=== PATIENT | female | born 1990 ===

== ENCOUNTER 2024-11-26 07:47 | Inpatient (IN) ==
[2024-11-26] MEDS ORDERED: LIDOCAINE 1% LOCAL 20 ML VIAL INFIL PRN (08:50)
--- NOTE | 2024-11-26 09:05 | History & Physical Report ---
Date of Service November 26, 2024 Assessment & Plan (1) Normal labor: Present on Admission?: Yes (2) AMA (advanced maternal age) multigravida 35+: Present on Admission?: Yes Plan Admit to L and D Clear liquid x 1 then NPO/IV Fluids labs pain meds including epidural as the pt desires AROM, Pitocin as needed to augment labor Admission and Anticipated Discharge Date Admission Date: November 26, 2024 History of Present Illness Chief Complaint: normal labor Primary Care Provider: NO PCP pt 34 yr old IUP at 39 weeks 3 days , HENNA November 30/2025, came in c/o regular uterine contractions every 5 min. denies leaking of fluid per vagina, vaginal bleeding etc. reports good movement. Allergies Allergy/AdvReac Type Severity Reaction Status Date / Time cefdinir Allergy Unknown "Rash at Verified 11/18/24 07:51 joints" Penicillins Allergy Unknown Rash/swelli Verified 11/18/24 08:06 ng Home Medications Medication Instructions Recorded Confirmed Type 1 tab PO QAM 11/18/24 11/18/24 History albuterol sulfate 90 mcg/actuation 1 puff inhalation QID PRN sob 11/18/24 11/18/24 History aerosol inhaler cetirizine 10 mg tablet (Zyrtec) 10 mg PO DAILY 11/18/24 11/18/24 History cholecalciferol (vitamin D3) 10 1,000 mcg PO DAILY 11/18/24 11/18/24 History mcg (400 unit) capsule (Vitamin D3) famotidine 20 mg tablet (Pepcid) 20 mg PO BID 11/18/24 11/18/24 History ferrous sulfate 325 mg (65 mg 325 mg PO BID 11/18/24 11/18/24 History iron) tablet (iron) Past Med/Surg History Problem List (Updated 11/26/24 @ 09:04 by Tia Regalado MD) AMA (advanced maternal age) multigravida 35+ Normal labor Encounter for pre-operative examination Medical History History of COVID-19 (2019) no hosp; resolved Acid reflux during Asthma rare use of rescue inhaler Seasonal allergies receives allergy injections Surgical History Hx of wisdom tooth extraction Hx of appendectomy Family History Other No family history of adverse response to anesthesia Social History Smoking Status: Never smoker Second Hand Exposure: No; Do You Dip or Chew Tobacco: No; Hx Alcohol Use: No Hx Substance Use: No Preferred Language: Icelandic Communication Ability: Effective Spa Host Required: No Beliefs That Will Affect Care: None marital status: Current Living Situation: Family Other Information That Helps Us Care for You: No Feels Safe at Home: Yes Safety Concerns: Feels Safe At This Time Assistive Devices: None Review of Systems Review of Systems: All systems reviewed & are unremarkable except as noted in HPI & below Constitutional: as per Subjective / HPI Respiratory: as per Subjective / HPI Cardiovascular: as per Subjective / HPI Physical Exam Constitutional: WD/WN, vitals as above Respiratory: normal respiratory effort, lungs clear to auscultation Cardiovascular: RRR, no murmur, no edema Gastrointestinal (Abdomen): normal bowel sounds, soft, nontender, no hepatosplenomegaly Skin: no rashes, warm and dry Psychiatric: A+Ox3, euthymic affect Genitourinary: no vaginal lesions, no adnexal mass Speculum/Bimanual Exam: normal appearance of the vagina OB Exam Abdomen: + fundal height (39 cm), + heart tones (140s, Good variability, positive accelerations ) and + vertex Manual OB Exam: + cervical dilation 6 cm, + cervical effacement 80% and + station -2 OB Exam Monitor Tracing: + external FHT monitor used, + external uterine monitor used, + category I and + normal FHT variability bulging membranes Results & Data Results & Data Vital Signs (Past 12 Hours) Vital Signs Temp Pulse Resp BP 11/26/24 08:03 37.0 C 18 11/26/24 08:01 85 123/78 Code Status & VTE Plan VTE Prophylaxis Plan VTE Prophylaxis will be ordered: No
[2024-11-26 09:33] LABS: Hematocrit (blood only) 36.2 % (37.0-47.0); Hemoglobin 12.5 g/dl (12.0-16.0); Mean Corpuscular Hemoglobin 30.9 pg (25.0-34.0); Mean Corpuscular Volume 89.6 fL (80.0-100.0); Platelet Count 300 K/uL (130-400); RDW Standard Deviation 53.7 fL (36.4-46.3); Red Blood Count 4.04 M/uL (4.20-5.40); White Blood Count 14.38 K/ul (4.8-10.8)
[2024-11-26] MEDS: LACTATED RINGER'S 1,000 ML IV PRN (11:29)
[2024-11-26] MEDS ORDERED: ONDANSETRON INJ 2 MG/ML 2 ML VIAL IV PRN (11:42)
[2024-11-26] MEDS ORDERED: BUPIVACAINE 0.25% PF 30 ML VIAL EPI PRN (11:42)
[2024-11-26] MEDS ORDERED: ROPIVACAINE 0.5% PF 5 MG/ML 20 ML VIAL EPI PRN (11:42)
[2024-11-26] MEDS ORDERED: diphenhydrAMINE 50 MG/ML VIAL IV PRN (11:42)
[2024-11-26] MEDS ORDERED: NALOXONE HCL 0.4 MG/1 ML VIAL/CARP IV PRN (11:42)
[2024-11-26] MEDS ORDERED: NALOXONE HCL 1 MG in SODIUM CHLORIDE 0.9% 1,000 ML IV PRN (11:42)
[2024-11-26] MEDS ORDERED: LIDOCAINE 2% MPF LOCAL 5 ML VIAL EPI PRN (11:42)
[2024-11-26] MEDS ORDERED: NALBUPHINE HCL INJ 10 MG/ML AMP IV PRN (11:42)
[2024-11-26] MEDS ORDERED: SODIUM CHLORIDE 0.9% PF INJ 10 ML VIAL EPI PRN (11:42)
[2024-11-26] MEDS ORDERED: fentANYL 2 MCG/ML BUPIVacaine 0.125%-NSS 100ML BAG EPI PRN (11:42)
[2024-11-26] MEDS: fentANYL 2 MCG/ML BUPIVacaine 0.125%-NSS 100ML BAG ONE (12:06)
[2024-11-26] MEDS: LIDOCAINE 2%/EPINEPHRINE 1:200,000 20 ML PF ONE (12:08)
[2024-11-26] MEDS: BUPIVACAINE 0.25% PF 30 ML VIAL ONE (12:08)
--- NOTE | 2024-11-26 12:10 | Anesthesiology Consultation ---
Date of Service November 26, 2024 Assessment & Plan (1) Encounter for pre-operative examination: Chart Review Chart Review: Patient NOT seen in Pre Admission Testing and Acceptable Risk for Labor Epidural Consults Requested none History Height/Weight Height: 5 ft 1 in Weight: 74.389 kg Allergies Allergy/AdvReac Type Severity Reaction Status Date / Time cefdinir Allergy Unknown "Rash at Verified 11/26/24 10:27 joints" Penicillins Allergy Unknown Rash/swelli Verified 11/26/24 10:27 ng Medications Home Medications Medication Instructions Recorded Confirmed Last Taken 1 tab PO QAM 11/18/24 11/26/24 Unknown albuterol sulfate 90 mcg/actuation 1 puff inhalation QID PRN sob 11/18/24 11/26/24 Unknown aerosol inhaler cetirizine 10 mg tablet (Zyrtec) 10 mg PO DAILY 11/18/24 11/26/24 Unknown cholecalciferol (vitamin D3) 10 1,000 mcg PO DAILY 11/18/24 11/26/24 Unknown mcg (400 unit) capsule (Vitamin D3) famotidine 20 mg tablet (Pepcid) 20 mg PO BID 11/18/24 11/26/24 Unknown ferrous sulfate 325 mg (65 mg 325 mg PO BID 11/18/24 11/26/24 Unknown iron) tablet (iron) Active Medications Generic Name Dose Route Start Last Admin Trade Name Freq PRN Reason Stop Dose Admin Lactated Ringer's 1,000 mls @ 125 mls/hr 11/26/24 08:50 11/26/24 11:29 Lr IV 11/28/24 08:49 999 mls/hr .Q8H PRN Administration L&D Protocol Protocol Past Medical History Medical History History of COVID-19 (2019) no hosp; resolved Acid reflux during Asthma rare use of rescue inhaler Seasonal allergies receives allergy injections Past Family History Family History Other No family history of adverse response to anesthesia Past Surgical History Surgical History Hx of wisdom tooth extraction Hx of appendectomy Social History Smoking Status: Never smoker Do You Dip or Chew Tobacco: No Hx Alcohol Use: No Hx Substance Use: No substance use type: does not use Physical Exam Vital Signs Last Vital Signs Temp 98.8 F 11/26/24 11:22 Pulse 90 11/26/24 12:08 Resp 20 11/26/24 11:22 BP 118/60 11/26/24 12:07 Pulse Ox 99 11/26/24 12:08 Testing Laboratory Results 11/26/24 09:04
[2024-11-26] MEDS: DINOPROSTONE 10 MG INSERT PV ONE (12:16)
[2024-11-26] MEDS: SODIUM CHLORIDE 0.9% PF INJ 10 ML VIAL ONE (12:17)
[2024-11-26] MEDS ORDERED: Nursing to Pharmacy Communication SCH (13:30)
[2024-11-26] MEDS: FAMOTIDINE 20 MG TAB PO SCH (13:43)
--- NOTE | 2024-11-26 14:44 | Obstetrical Progress Note ---
Date of Service November 26, 2024 Assessment & Plan (1) AMA (advanced maternal age) multigravida 35+: (2) Normal labor: (3) Encounter for pre-operative examination: Plan: Continue monitoring Admission and Anticipated Discharge Date Admission Date: November 26, 2024 Subjective pt comfortable s/p epidural. Review of Systems Review of Systems: All systems reviewed & are unremarkable except as noted in HPI & below Physical Exam Constitutional: WD/WN, vitals as above Genitourinary: OB Exam Abdomen: + vertex Manual OB Exam: + cervical dilation 7 cm, + cervical effacement 90%, + station -2 and + amniotic fluid clear OB Exam Monitor Tracing: + external FHT monitor used, + external uterine monitor used, + category I and + normal FHT variability Results & Data Vital Signs (Past 12 Hours) Vital Signs Temp Pulse Resp BP Pulse Ox 11/26/24 14:38 105 H 98 11/26/24 14:33 99 11/26/24 14:33 73 11/26/24 14:33 71 130/77 11/26/24 14:28 70 96 11/26/24 14:23 81 97 11/26/24 14:19 68 116/74 11/26/24 14:18 77 97 11/26/24 14:13 78 98 11/26/24 14:08 80 98 11/26/24 14:03 98 11/26/24 14:03 88 11/26/24 14:03 72 121/74 11/26/24 13:58 72 100 11/26/24 13:53 87 98 11/26/24 13:49 80 20 145/79 H 11/26/24 13:48 99 H 98 11/26/24 13:43 89 98 11/26/24 13:38 83 99 11/26/24 13:33 88 117/72 98 11/26/24 13:28 85 100 11/26/24 13:23 90 98 11/26/24 13:18 93 H 98 11/26/24 13:17 93 H 119/76 11/26/24 13:13 87 99 11/26/24 13:08 83 98 11/26/24 13:03 82 98 11/26/24 13:02 86 121/73 11/26/24 12:58 82 100 11/26/24 12:53 91 H 99 11/26/24 12:48 79 124/67 99 11/26/24 12:43 92 H 99 11/26/24 12:38 94 H 98 11/26/24 12:33 85 100 11/26/24 12:32 78 126/70 11/26/24 12:28 85 99 11/26/24 12:26 82 123/77 11/26/24 12:23 83 99 11/26/24 12:21 82 121/72 11/26/24 12:18 85 98 11/26/24 12:16 88 124/77 11/26/24 12:13 87 99 11/26/24 12:09 90 119/66 11/26/24 12:08 90 99 11/26/24 12:07 88 118/60 11/26/24 12:06 81 115/56 L 11/26/24 12:04 93 H 125/69 11/26/24 12:03 100 H 99 11/26/24 11:58 106 H 99 11/26/24 11:53 95 H 99 11/26/24 11:22 37.1 C 77 20 135/79 11/26/24 08:03 37.0 C 18 11/26/24 08:01 37.0 C 85 18 123/78
[2024-11-26] MEDS: OXYTOCIN 30 UNITS/NSS 30 UNITS/500 ML BAG IV PRN (18:02)
--- NOTE | 2024-11-26 18:10 | Delivery Summary ---
Vaginal Delivery Summary Date of Service November 26, 2024 Vaginal Delivery Summary pt fully dilated and pushing, placed in dorsal lithotomy position, prepped and draped in usual fashion, pt pushed for few minutes, delivered alive viable male in JAMES position, placed the infant on the mothers abdomen, bulb suctioned nose and mouth, cord clamped and cut by the FOB. Placenta delivered spontaneously and complete. Small second degree vaginal laceration noted, repaired with 2.0 Vicryl. IV Pitocin started. Apgars: 8,9 at 1 and 5 min EBL: 120 CC Time of the : 5: 55 pm placenta delivered : 6:02 PM
[2024-11-26] MEDS ORDERED: OXYTOCIN 30 UNITS/NSS 30 UNITS/500 ML BAG IV PRN (18:42)
[2024-11-26] MEDS ORDERED: HYDROCORTISONE ACETATE 25 MG SUPP PR PRN (18:42)
--- NOTE | 2024-11-26 19:53 | Anesthesia Procedure Note ---
Date of Service November 26, 2024 Anesthesia Post Epidural Note Vital Signs Vital Signs: Temp Pulse Resp BP Pulse Ox 99.5 F 95 H 18 138/70 99 11/26/24 17:23 11/26/24 19:47 11/26/24 19:40 11/26/24 19:47 11/26/24 18:03 Notes Mental Status: alert / awake / arousable and participated in evaluation Nausea / Vomiting: adequately controlled Pain: adequately controlled Airway Patency, RR, SpO2: stable & adequate BP & HR: stable & adequate Hydration State: stable & adequate Neuraxial Anesthesia: was administered and sensory block is resolving Anesthetic Complications: no major complications apparent and Pt Satisfied with anesthetic care Epidural: Removed without complications and With tip intact
[2024-11-26] MEDS: IBUPROFEN 600 MG TAB PO PRN (21:00)
[2024-11-26] MEDS: DOCUSATE SODIUM 100 MG CAP PO SCH (21:00)
[2024-11-26] MEDS: DIPHTHER/TETAN/PERTUS Vaccine (Tdap, Adol/Adult) 0.5mL IM ONE (21:01)
[2024-11-26] MEDS: BUPIVACAINE 0.25% PF 30 ML VIAL EPI STA (23:17)
[2024-11-26] MEDS: LIDOCAINE 2%/EPINEPHRINE 1:200,000 20 ML PF EPI STA (23:17)
[2024-11-26] MEDS: SODIUM CHLORIDE 0.9% PF INJ 10 ML VIAL EPI STA (23:18)
[2024-11-27] MEDS: ACETAMINOPHEN 325 MG TAB PO PRN (06:00)
[2024-11-27] MEDS: BENZOCAINE 20% SPRY 85 APPLN/85 GM CAN EXT PRN (06:07)
[2024-11-27 07:00] LABS: Hematocrit (blood only) 34.0 % (37.0-47.0); Hemoglobin 11.5 g/dl (12.0-16.0); Mean Corpuscular Hemoglobin 30.3 pg (25.0-34.0); Mean Corpuscular Volume 89.7 fL (80.0-100.0); Platelet Count 221 K/uL (130-400); RDW Standard Deviation 54.2 fL (36.4-46.3); Red Blood Count 3.79 M/uL (4.20-5.40); White Blood Count 12.61 K/ul (4.8-10.8)
[2024-11-27] MEDS: PRENATAL VITAMIN 1 TAB PO SCH (08:38)
--- NOTE | 2024-11-27 09:42 | Obstetrical Progress Note ---
Date of Service November 27, 2024 Assessment & Plan (1) Normal labor: discharged home today Subjective Ambulation: ambulating normally Voiding: no voiding problems Passing Gas:: Yes Diet Tolerance:: regular diet Lochia:: Small Feeding Type:: breast feeding Current Pain Level(1-10): 0 doing well Physical Exam Constitutional WD/WN, vitals as above Gastrointestinal (Abdomen) Inspection/Auscultation: abdomen normal to inspection fundus firm below U non-tender Musculoskeletal Extremities: extremities normal to inspection Skin no rashes, warm and dry Neurologic patellar DTR's 2+ bilat, sensation intact Psychiatric A+Ox3, euthymic affect Results & Data Vital Signs (Past 12 Hours) Vital Signs Temp Pulse Resp BP Pulse Ox O2 Del Method 11/27/24 02:15 36.7 C 73 16 122/81 98 Room Air 11/26/24 23:00 36.9 C 69 16 100/66 97 Room Air Laboratory Results Laboratory Results - last 72 hr 11/26/24 11/27/24 09:04 06:38 WBC 14.38 H 12.61 H RBC 4.04 L 3.79 L Hgb 12.5 11.5 L Hct 36.2 L 34.0 L MCV 89.6 89.7 MCH 30.9 30.3 MCHC 34.5 33.8 RDW Std Deviation 53.7 H 54.2 H RDW Coeff of [place] 16.2 H 16.3 H Plt Count 300 221 MPV 10.1 9.9 Treponema pallidum Ab Negative
[2024-11-27 14:18] VITALS: RESP 18
[2024-11-27 15:10] VITALS: O2SAT 97
[2024-11-27 16:01] VITALS: BP 129/85; PULSE 71; TEMP 98.2
== END 2024-11-27 19:45 | disposition home or self-care (01) | DRG 807 ==
LOC: 4S1 07:47 → 4E2 20:40